=== PATIENT | male | born 2000 | race Caucasian/White ===

== ENCOUNTER 2021-12-12 06:24 | Emergency (ER) | payer OTHER ==
[~2021-12-12] VITALS: Ht 170.2 cm; Wt 78.0 kg
[2021-12-12] MEDS ORDERED: LIDOCAINE HCL/EPINEPHRINE 1%-EPI 1:100,000 20 ML VIAL INFIL ONE (08:15)
[2021-12-12] MEDS ORDERED: BACITRACIN ZINC OINT UDPKT TOP ONE (08:15)
[2021-12-12 09:23] VITALS: BP 117/68
== END 2021-12-12 09:26 | disposition home or self-care (01) ==
LOC: ER 06:24
DX: S01.81XA Laceration without foreign body of other part of head, initial encounter (principal); Y08.89XA Assault by other specified means, initial encounter; Y93.89 Activity, other specified; Y92.89 Other specified places as the place of occurrence of the external cause; Y99.8 Other external cause status
CPT/HCPCS: 12011; 70450; 99284; A4217; J3490; Z7610